=== PATIENT | female | born 1955 | race Caucasian/White ===

== ENCOUNTER → 2017-07-10 | Day surgery (SDC) | payer OTHER ==
[~2017-07-10] MED LIST: PROPOFOL 200 MG/20 ML AMP IV ONE
--- NOTE | 2017-07-10 08:52 | GIPROC ---
[facility] [address] [facility], [address] EGD PROCEDURE REPORT EXAM DATE: 07/10/2017 PATIENT NAME: Alvaro Rodney MR #: [id number] BIRTHDATE: 1955 ATTENDING: Jonatan Ordaz MD ORDER #: [id number] AGENCY SERVICE COORDINATOR: none STATUS: outpatient INDICATIONS: The patient is a 62 yr old female here for an EGD due to heartburn, epigastric abdominal pain, and hx of lap band 1998, revision 2005, egd 2015, malfunction/slipped gastric band PROCEDURE PERFORMED: EGD w/ biopsy MEDICATIONS: None and Per Anesthesia. TOPICAL ANESTHETIC: none CONSENT: The patient understands the risks and benefits of the procedure and understands that these risks include, but are not limited to: sedation, allergic reaction, infection, perforation and/or bleeding. Alternative means of evaluation and treatment include, among others: physical exam, x-rays, and/or surgical intervention. The patient elects to proceed with this endoscopic procedure. medical equipment was checked for proper function. Hand hygiene and appropriate measures for infection prevention was taken. After the risks, benefits and alternatives of the procedure were thoroughly explained, Informed consent was verified, confirmed and timeout was successfully executed by the treatment team. The patient was anesthetized with topical anesthesia and the EG-[id number] ([id number]) endoscope was introduced through the mouth and advanced to the second portion of the duodenum. Gastric band noted to patent and passed the scope ealily. Band appeared intact. I did not see any errosion. Band appears malpositioned. Small polyps noted in gastric fundus. Biopsy obtained. Mild gastritis also biopsy of antrum. GE junction with irregular z line. mild esophagitis also biopsies take. Retroflexed views revealed gastric band malposition. I did not reveal a significant hiatal hernia. The gastroscope was then slowly withdrawn and removed. STOMACH: A few small smooth semi-pedunculated polyps were found in the gastric fundus. There was mild gastritis in the gastric antrum. ESOPHAGUS: The mucosa of the esophagus appeared normal. Multiple biopsies were performed using cold forceps. ADVERSE EVENTS: There were no complications. IMPRESSIONS: 1. Few small semi-pedunculated polyps were found in the gastric fundus 2. Retroflexed views revealed gastric band malpositio 3. mild gastritis 4. irregular z line with mild esophagitis RECOMMENDATIONS: 1. Await biopsy results. Biopsy results will not be ready for 7-10 days. If you don't hear from us in two weeks, call our office for biopsy results. 2. F/u with Dr. Hernandez 3. Continue PPI PATIENT CONDITION: fair DISPOSITION: Home REPEAT EXAM: NONE Jonatan Ordaz MD eSigned: Jonatan Ordaz MD 07/10/2017 8:51 AM cc: Carlos Hernandez M.D. PATIENT NAME: Alvaro Rodney MR#: [id number]
== END | disposition home or self-care (01) ==
LOC: ESDC 06:56
PROVIDERS: ATTEND Surgery
DX: R12 Heartburn (principal); Z98.84 Bariatric surgery status; K31.7 Polyp of stomach and duodenum; K29.70 Gastritis, unspecified, without bleeding; K22.9 Disease of esophagus, unspecified; K20.9 Esophagitis, unspecified
CPT/HCPCS: 00731; 43239; 88305; 88312; J3010